=== PATIENT | female | born 1945 | race Caucasian/White ===

== ENCOUNTER 2022-06-11 11:10 | Emergency (ER) | payer MEDICARE, SELFPAY ==
[2022-06-11 11:11] VITALS: BP 149/86; PULSE 85; RESP 14; TEMP 36.2; O2SAT 98; BMI 27.9
--- NOTE | 2022-06-11 11:30 | EX.ED.GENINJ ---
HPI History of Present Illness Chief Complaint: Laceration Narrative Narrative: 77-year-old female here for fall and concern for laceration to the right side of the face. Notes mechanical fall in shower this morning approximate 2 hours prior to arrival. Notes mild headache that is constant, severe without alleviating assessment features. There is no radiation component endorsed PFSH PFS Allergy/AdvReac Type Severity Reaction Status Date / Time amoxicillin AdvReac Diarrhea Verified 06/11/22 11:11 Social History Smoking Status: Never smoker ROS ROS ED ROS Narrative Constitutional: Denies fever HEENT: Denies sore throat Neck: Denies neck pain Cardiovascular: Denies chest pain, syncope Respiratory: Denies shortness of breath GI: Denies nausea vomiting or abdominal pain : Denies changes in urinary habits Musculoskeletal: Denies muscle or joint pain Neurologic: Denies numbness weakness or loss of sensation, endorses headache Skin endorses laceration EXAM Physical Exam Narrative Exam Narrative: Nursing triage notes reviewed, Vital signs reviewed Constitutional: please see mdm HENT: MMM, no cephalhematoma, intraoral lesions, nasal septal hematoma, hemotympanum Eyes: Pupils equal round and reactive to light, Extraocular muscles intact Neck: No stridor, no JVD, full neck ROM, mild cervical spine TTP Lungs: Clear to auscultation, No wheezing or rales. No increased work of breathing, no conversational dyspnea, no accessory muscle use, no nasal flaring. No respiratory distress noted Heart: Regular rate and rhythm, No murmurs, No rubs and No gallops, 2+ distal pulses (radial, femoral, posterior tibial) in all extremities Abdomen: Soft, there is no tenderness, rigidity, rebound or guarding, no obvious peritoneal signs, no palpable pulsatile abdominal masses, no auscultated abdominal bruit : No CVAT Extremities: No edema Neuro: No focal neurological deficits, cranial nerves II through XII intact, 5/5 strength in all extremities. Intact sensation to light touch in all extremities, 2+ reflexes bilateral patella dens. Normal gait. No ataxia. Skin: Approximate 1 inch linear laceration noted to the right forehead, no active bleeding, no galeal involvement Const Vital Signs: 06/11/22 11:11 Temperature 97.2 F L Temperature Source Temporal Pulse Rate 85 Respiratory Rate 14 Blood Pressure 149/86 H Blood Pressure Mean 107 Pulse Ox 98 Oxygen Delivery Method Room Air PROC Procedures Lacerations ,: Length: 1 in Depth: Skin Shape: Linear Prep: Sterile Conditions and Shure-Clens Laceration repair: Local and Skin sutures (5-0 Vicryl) Number of Sutures/Frankie: 3 Suture Information: Simple MDM MDM MDM Narrative Medical decision making narrative: Chief Complaint: Fall, laceration External records reviewed: No recent sent tetanus immunization, no blood thinners noted I considered: Subdural hematoma, epidural hematoma, fracture dislocation of the cervical spine CT scan of the head, cervical spine without acute injury. Laceration was repaired please see procedure note. Patient is appropriate for discharge home with strict infection return precautions. Tetanus updated. Factors affecting care: Social determinants of health: History obtained from others: Shared decision making: I will have a discussion with the patient and or visitors regarding risk/benefits of further testing or admission. They will be made aware of of the risk/benefits inherent in this decision they will be given the opportunity to voice understanding. Consults: none Radiography Diagnostic Testing: Clinical Impression(s) from Imaging Studies Brain CT 06/11/22 12:01 IMPRESSION: Chronic involutional changes of the brain. Electronically Signed: Leonel Meneses MD at 12:46 EST , Cervical Spine CT 06/11/22 12:01 IMPRESSION: Multilevel degenerative changes, as described above. Electronically Signed: Leonel Meneses MD at 12:48 EST , Discharge Plan Triage Chief Complaint: Laceration ED Provider: Steve Baron Dx/Rx/DC Orders Instructions: ED Head Injury (Adult), ED FACIAL LACERATION Suture Tape Primary Care Provider: Jonn Manning Referrals: Thuy Gibson MD [Med Staff - Waste Transportation Technician] - Activity Restrictions/Additional Instructions: Please return if develop loss of consciousness, vomiting, numbness, loss sensation or inability to move your extremities. Please return if develop redness, white-yellow discharge, increasing pain at the site of your laceration as these are signs of infection. This will necessitate antibiotic treatment. Disposition Disposition: Home, Self Care
--- NOTE | 2022-06-11 12:01 | CT_ITS ---
STUDY: CT CERVICAL SPINE WITHOUT CONTRAST REASON FOR EXAM: Female, 77 years old. Fall. Laceration to the right side of the face. RADIATION DOSAGE (If Supplied By Facility): CTDIvol = ( 20.13 ) mGy, DLP = ( 373.22 ) mGycm TECHNIQUE: High resolution transaxial imaging was performed without contrast material. Sagittal and coronal images were reconstructed. Individualized dose optimization techniques were used for this CT. COMPARISON: None FINDINGS: Normal craniovertebral junction. There are degenerative changes of the anterior atlantoaxial articulation. Normal odontoid process. Normal cervical lordosis. Normal vertebral bodies and posterior osseous elements. C2-3: Facet joint osteoarthritis and hypertrophy. Mild to moderate degree of right neural foraminal stenosis. C3-4: Moderate degree of disc space narrowing. Spondylosis. Uncovertebral arthrosis. Mild degree of bilateral neural foraminal stenosis. C4-5: Fusion of the C4-C5 disc space level. Uncovertebral arthrosis. Facet joint osteoarthritis and hypertrophy worse on the right side. Moderate degree of right neural foraminal stenosis. C5-6: Marked degree of disc space narrowing. Spondylosis. Facet joint osteoarthritis. Uncovertebral arthrosis. Mild degree of bilateral neural foraminal stenosis. C6-7: Moderate degree of disc space narrowing. Spondylosis. C7-T1: Normal endplates. Normal disc height and morphology. Normal central canal and intervertebral neuroforamina. Calcified plaques at the origin of the left internal carotid artery. CT/Spine Cervical without Contras IMPRESSION: Multilevel degenerative changes, as described above. Electronically Signed: Leonel Meneses MD at 12:48 EST ,
--- NOTE | 2022-06-11 12:01 | CT_ITS ---
STUDY: CT BRAIN WITHOUT CONTRAST REASON FOR EXAM: Female, 77 years old. Fall, head trauma, rule out subdural hematoma RADIATION DOSAGE (If Supplied By Facility): CTDIvol = ( 44.99 ) mGy, DLP = ( 812.98 ) mGycm TECHNIQUE: Transaxial CT imaging of the brain was performed without administration of intravenous contrast material. Individualized dose optimization techniques were used for this CT. COMPARISON: No relevant priors. FINDINGS: Normal soft tissue structures. Normal calvarium. There is mild cerebral atrophy with widening of the extra-axial spaces and ventricular dilatation. Normal white matter tracts of the cerebral hemispheres. Normal basal ganglia and thalami. Normal brainstem. Normal cerebellum. There is no intracranial hemorrhage. There are no findings of an acute ischemic infarction. Atherosclerotic plaque formation of the cavernous portions of the internal carotid arteries bilaterally. Normal visualized paranasal sinuses. CT/Brain/Head without Contrast IMPRESSION: Chronic involutional changes of the brain. Electronically Signed: Leonel Meneses MD at 12:46 EST ,
[2022-06-11] MEDS: Acetaminophen 500 MG Tablet PO (12:12)
[2022-06-11] MEDS: Lidocaine 1% (30 ml sdv) 30 ML Vial INFILT (13:07)
[2022-06-11] MEDS: Diphth,Pertuss(Acell),Tet Vac 0.5 ML Vial IM (13:41)
[2022-06-11] MEDS: Acetaminophen 325 MG Tablet PO (13:42)
[2022-06-11] MEDS: BACITRACIN 15 GM Tube 1 APPLIC TOPICAL (13:43)
== END 2022-06-11 13:47 | disposition home or self-care (01) ==
PROVIDERS: Emergency Provider Emergency Medicine; PCP Family Medicine; Visit Provider Emergency Medicine
DX: S01.91XA Laceration without foreign body of unspecified part of head, initial encounter (principal); W18.2XXA Fall in (into) shower or empty bathtub, initial encounter; Z23 Encounter for immunization
CPT/HCPCS: 12001; 70450; 72125; 90471; 90715; 99283

== ENCOUNTER 2023-04-10 09:04 | Emergency (ER) | payer MEDICARE, SELFPAY ==
[2023-04-10 09:05] VITALS: BP 154/79; PULSE 70; RESP 16; TEMP 36.6; O2SAT 97
--- NOTE | 2023-04-10 09:27 | ED.VIS.LOWEX ---
HPI History of Present Illness HPI Narrative: 77-year-old female with atraumatic left knee pain. Yesterday she felt a pop in her knee while she was ambulating. And since that time has had pain. No prior history. No prior knee surgery. No redness or fever. No swelling. No significant ankle or hip pain. Chief Complaint: Lower Extremity Injury Informant: patient and spouse/S.O. Occured/Mechanism Mechanism/Context: No injury and No blunt trauma Onset/Context/Timing Onset: Today and Yesterday Context: Gradual Onset Timing: Intermittent Quality of Pain: Aching Current Severity: Mild Maximum Severity: Mild Associated Symptoms Associated Symptoms: Negative for Parasthesia, Weakness or Loss of Funtion Narrative Narrative: 77-year-old female 2-day history of atraumatic knee pain after she felt a pop. No prior knee history or surgery. Prior similar symptoms: No Recent Illness/Hospitalization: No PFSH PFSH Allergy/AdvReac Type Severity Reaction Status Date / Time amoxicillin AdvReac Diarrhea Verified 04/10/23 09:04 Social History Smoking Status: Never smoker ROS ROS ED ROS Narrative Denies recent illness. Review of Systems ROS Unobtainable: Denies due to encephalopathy Constitutional Constitutional ED: Denies chills or fever(s) Eyes Eyes: Denies blurry vision ENT ENT ED: Denies ear pain Cardiovascular Cardiovascular: Denies chest pain Respiratory/Chest Respiratory/Chest: Denies cough Gastrointestinal Gastrointestinal: Denies abdominal pain Genitourinary Genitourinary ED: Denies dysuria Musculoskeletal Musculoskeletal: Denies arthralgias Integumentary Denies abscess Neurologic Neurologic: Denies headache(s) Psychiatric Psychiatric: Denies anxiety Endocrine Endocrinology: Denies polydipsia Hematologic/Lymphatic Hematologic/Lymphatic: Denies easy bleeding or easy bruising Allergic/Immunologic Allergic/Immunologic ED: Denies mouth swelling or tongue swelling EXAM Physical Exam Narrative Exam Narrative: 77-year-old female no acute distress. Vital signs stable afebrile. HEENT exam unremarkable. Lungs clear. Heart regular rhythm. Abdomen soft nontender. Moves all 4 extremities. Normal range of motion. Specifically she has normal flexion extension to both her left knee, hip and ankle. The left knee has no swelling. No effusion. No redness. No warmth. She is able to do full flexion extension. ACL and PCL are intact. She does have pain with anterior drawer but good endpoints. Quadriceps patellar and infrapatellar tendons are intact. MCL and LCL are intact. Left ankle and foot are nontender. Full range of motion. Normal DP pulse. There is no calf pain or tenderness. No edema or cords. Normal coloration of the skin. Benign unimpressive exam. Const Vital Signs: 04/10/23 09:05 Temperature 97.9 F Temperature Source Temporal Pulse Rate 70 Respiratory Rate 16 Blood Pressure 154/79 H Blood Pressure Mean 104 Pulse Ox 97 Oxygen Delivery Method Room Air Positive well nourished and well developed; Negative for obese, cachectic, contractures or unkempt General Appearance ED: well developed and NAD; Negative for unkempt, cachectic or contractures Nutritional Appearance: Negative for cachectic or obese HEENT Reports moist mucous membranes normocephalic and atraumatic; Negative for trauma or tenderness Eyes PERRL General Eye ED: Negative for other Neck full ROM and supple Thyroid: Negative for tender Lymph Lymphatic: Negative for other Chest Wall inspection of chest normal and palpation of chest normal Chest: Negative for other Resp normal respiratory effort, no retractions and clear to auscultation bilaterally Effort and Inspection: Negative for pain with movement Auscultation: Negative for rales, rhonchi or wheezes Cardio regular rate, regular rhythm, S1 normal heart sound, S2 normal heart sound and no murmurs Rate: Negative for bradycardia or tachycardic Rhythm: Negative for abnormal rhythm Bruits: Negative for other GI non-tender, non-distended and no masses Inspection: Negative for abdominal distention Auscultation: normoactive bowel sounds Palpation: soft; Negative for tender or guarding Back/Spine no CVA tenderness General Back: Negative for CVA tenderness Cervical Spine: Negative for cervical spine tenderness Thoracic Spine / Upper Back: Negative for thoracic spinal tenderness Lumbar Spine / Lower Back: Negative for lumbar spinal tenderness Extremity normal to inspection and full ROM Extremity Narrative: Mild tenderness of the left knee with anterior draw. No redness. No swelling. No effusion. Tendons and ligaments intact. Full flexion extension. Parents. No calf pain. No tenderness. No edema. General Extremety ED: Negative for cyanosis or edema General Extremity: Negative for cyanosis or edema Neuro oriented x3, CN's II-XII intact bilaterally and moves all extremities Sensorium / Orientation: alert, oriented to person, oriented to place and oriented to time; Negative for orientation impaired, confused or lethargic Motor Exam: strength 5/5 throughout Psych mental status grossly normal Appearance: Negative for unkempt Speech: No other Mood & Affect: Negative for anxious Skin no wounds Lesions: no lesions Rashes: no rashes Trauma: Negative for abrasion or laceration MDM MDM MDM Narrative Medical decision making narrative: 77-year-old female new onset left knee pain after she felt a pop yesterday. No trauma or injury. No prior history of surgery. Benign exam. X-ray being obtained. Repeat exam patient doing well at 10 AM. We discussed her x-ray results. The patient stood up and ambulated she had pain in her knee with ambulation I think is secondary to arthritis small effusion could even be a meniscal injury. She will be given crutches. Ice. Anti-inflammatories. Follow-up with local orthopedics. History & Record Review Discussion w/independent historian: Patient Additional record(s) reviewed:: Prior inpatient record and Prior outpatient record Radiography Diagnostic Testing: Clinical Impression(s) from Imaging Studies Knee X-Ray 04/10/23 09:33 IMPRESSION: Normal x-ray examination of the knee. Tiny joint effusion. Electronically Signed: Leonel Meneses MD at 9:54 EST Reading Location ID and State: [address] [place] [address] , Service support , Left knee x-ray, multiple views, interpreted by myself and radiologist. Shows chronic changes mild joint space narrowing. No fracture. No dislocation. Small effusion. Consistent with arthritis. Discharge Plan Triage Chief Complaint: Lower Extremity Injury ED Provider: Boby Gaffney Dx/Rx/DC Orders Clinical Impression: Arthritis, Acute pain of left knee Instructions: ED Knee Effusion Primary Care Provider: Jonn Manning Referrals: Jonn Manning MD [Primary Care Provider] - Conrad Henning MD [Med Staff - Active Staff] - 1 Week if not improving Activity Restrictions/Additional Instructions: Ice and elevate the left knee to decrease pain and swelling. Rest the knee. Crutches to walk until the pain resolves. I suspect this is secondary to arthritis and some inflammation in your knee. It could be from wear and tear of the meniscus or cartilage in the knee. If it is not getting better with ice and anti-inflammatories follow-up with local orthopedics. They can decide if you need a knee joint injection of steroids and/or an MRI. Disposition Disposition: Home, Self Care
--- NOTE | 2023-04-10 09:33 | RAD_ITS ---
STUDY: X-RAY - LEFT KNEE REASON FOR EXAM: Female, 77 years old. Atraumatic knee pain. TECHNIQUE: 4 view(s) of the knee. COMPARISON: None. FINDINGS: Normal visualized distal femur. Normal visualized proximal tibia and fibula. Normal proximal tibiofibular articulation. Normal medial femorotibial compartment. Normal lateral femorotibial compartment. Normal patellofemoral articulation. Tiny joint effusion. RAD/Knee 4 or More Views IMPRESSION: Normal x-ray examination of the knee. Tiny joint effusion. Electronically Signed: Leonel Meneses MD at 9:54 EST ,
[2023-04-10 10:24] VITALS: BMI 28.1
== END 2023-04-10 10:26 | disposition home or self-care (01) ==
PROVIDERS: Emergency Provider Emergency Medicine; PCP Family Medicine; Visit Provider Emergency Medicine
DX: M17.12 Unilateral primary osteoarthritis, left knee (principal); M25.462 Effusion, left knee
CPT/HCPCS: 73564; 99283